=== PATIENT | female | born 1935 | race Caucasian/White ===

== ENCOUNTER 2024-04-27 18:44 | Emergency (ER) | payer MEDICARE, OTHER, SELFPAY ==
--- NOTE | ~2024-04-27 | XR_ITS ---
EXAMINATION: XR chest 1V portable DATE: 04/27/2024 20:17 INDICATION: Fall with head injury TECHNIQUE: frontal view of the chest was obtained. COMPARISON: None FINDINGS: Small lung volumes. Mild right apical pleural-parenchymal scarring. The left apex is obscured by the patient's chin. Mild streaky opacities at the bilateral lower lung zones and favor atelectasis over p neumonia. No pleural effusion or pneumothorax. The cardiomediastinal silhouette is within normal limi ts conifer AP technique. IMPRESSION: 1. Small lung zones with mild streaky bibasilar atelectasis. Reviewed, dictated and finalized at location A.
--- NOTE | ~2024-04-27 | CT_ITS ---
EXAMINATION: CT cervical spine wo con DATE: 04/27/2024 20:35 INDICATION: Fall with head injury TECHNIQUE: Computed tomography (CT) of the cervical spine was performed without intravenous contrast. Automated exposure control and iterative reconstruction technique were employed. The dose-length pro duct was 176.96 mGy-cm. COMPARISON: None FINDINGS: 1 mm anterolisthesis C4 on C5 and 2 mm anterolisthesis C7 on T1. Alignment is otherwise normal. Verte bral body heights are normal. No fracture. Moderate disc height loss at C6-C7. Mild disc height loss at C5-C6 and C7-T1. Small posterior disc ossified complexes result in mild central canal stenosis at C5-C6 and C6-C7. Severe uncovertebral osteoarthritis on the left at C5-C6 and on the right at C6-C7. Moderate uncovertebral osteoarthritis on the left at and C4-C5, right at C5-C6 and on the left at C6- C7. Mild uncovertebral osteoarthritis at the remaining cervical levels. There is multilevel severe bi lateral cervical facet osteoarthritis. There is moderate neural foraminal stenosis on the left at C5- C6 with mild neural foraminal stenosis at many of the remaining bilateral cervical neural foramina. C ervical soft tissues are unremarkable. Mild biapical pleural-parenchymal scarring. IMPRESSION: 1. Moderate cervical spondylosis. No acute osseous abnormality. Reviewed, dictated and finalized at location A.
--- NOTE | ~2024-04-27 | CT_ITS ---
EXAMINATION: CT brain wo con DATE: 04/27/2024 20:35 INDICATION: Fall with head injury TECHNIQUE: Computed tomography (CT) of the head was performed without intravenous contrast. Sagittal and coronal reconstructions were performed. The mA was adjusted according to patient size. Iterative reconstruction technique was employed. The dose-length product was 605.33 mGy-cm. COMPARISON: None FINDINGS: Large left frontal scalp hematoma and smaller left parietal scalp hematoma. No fracture. No acute int racranial hemorrhage, acute infarction or abnormal extra axial fluid collection. There is mild scatte red white matter hypoattenuation consistent with chronic small vessel ischemic disease. Symmetric pro minence of the sulci and and subarachnoid spaces overlying the convexities consistent with moderate a ge-appropriate diffuse cerebral volume loss. Ventricles are normal and symmetric. 13 x 10 x 13 mm pa rtially calcified extra-axial mass along the inferior margin the posterior medial right tentorium con sistent with a meningioma. Intracranial calcified cerebral atherosclerosis is noted. The orbits, para nasal sinuses and mastoid air cells are normal. IMPRESSION: 1. No fracture or acute intracranial process. 2. Age-related changes including moderate diffuse volume loss and mild scattered white matter hypoatt enuation consistent with chronic small vessel ischemic disease. 3. 13 mm partially calcified extra-axial mass in the posterior fossa consistent with a meningioma. Reviewed, dictated and finalized at location A. IMPRESSION: 1. No fracture or acute intracranial process. 2. Age-related changes including moderate diffuse volume loss and mild scattere d white matter hypoattenuation consistent with chronic small vessel ischemic di sease. 3. 13 mm partially calcified extra-axial mass in the posterior fossa consistent with a meningioma.
[2024-04-27 18:45] VITALS: TEMP 37
--- NOTE | 2024-04-27 19:17 | ED_ITS ---
HPI - General Adult General Chief complaint: Fall Stated complaint: FALL, HEAD INJURY Time Seen by Provider: 04/27/24 18:53 History of Present Illness HPI narrative: This is an 88-year-old female history Alzheimer's dementia presenting after a fall. Patient has been having multiple falls over the last several days. Today she fell or she has to pick something up off the ground while in wheelchair. She then to before striking her head on the ground. No loss of consciousness. No use of blood thinners. Patient has no physical complaints at this time. Patient's daughter as the bedside. Discussing goals of care the patient is DNR DNI comfort measures and the daughter be pursuing hospice care. Exam Narrative: APPEARANCE: No apparent distress. A&O x1 Head: Hematoma to the left forehead EYES: EOMI, 2 mm and reactive NOSE: Atraumatic NECK: Trachea midline RESPIRATORY: No increased rate of breathing CTAB CARDIOVASCULAR: RRR, no peripheral edema ABDOMINAL: Non-distended soft nontender MUSCULOSKELETAl: No obvious deformities NEURO: Alert. Moving for 4 extremities to command SKIN:: Warm, dry. Normal color PSYCHIATRIC: Normal affect Course Vital Signs Vital signs: Vital Signs Temperature 98.6 F 04/27/24 18:45 Oxygen Delivery Room Air 04/27/24 18:45 Temperature 98.6 F 04/27/24 18:45 Oxygen Delivery Room Air 04/27/24 18:45 Medical Decision Making MDM Narrative Medical decision making narrative: -Course: 88-year-old female with severe dementia presenting after a ground level fall. CT of her head neck and chest x-ray were unremarkable for acute traumatic injury. I did speak with the patient's daughter at length in regards to goals of care. Patient is DNR DNI and going forward they will focus on comfort measures. Patient's daughter will speak with L[facility] about hospice options. -DDX includes but is not limited to: Dementia, ICH bony injury, soft tissue injury from sepsis, UTI -Co-morbidities complicating care: Dementia -Social determinants of health: [facility] resident -Hx from independent Sources: Daughter @ bedside -Independent interpretation of studies: Imaging reviewed -Shared decision making / Disposition: discharged. Vital Signs Vital Signs: Vital Signs Temperature 98.6 F 04/27/24 18:45 Oxygen Delivery Room Air 04/27/24 18:45 Temperature 98.6 F 04/27/24 18:45 Oxygen Delivery Room Air 04/27/24 18:45 Discharge Plan Discharge Clinical Impression: Fall Patient Disposition: Home, Self-Care Condition: Stable Instructions: Antibiotic Form, Dementia (ED) Additional Instructions: Celeste Gtz was seen in the ER for another fall. We discussed goals of care for Mrs. Gtz and we have decided to focus on making her comfortable. Please speak with Lisha about hospice options. Return to the ED if you would like re-evaluation. Follow-up/Referrals: PHYSICIAN,HOUSEKEEPING AND [employer] TEAM LEADER [Primary Care Provider] -
[2024-04-27 21:34] VITALS: BP 132/63; PULSE 62; RESP 18; O2SAT 94
--- NOTE | 2024-04-27 22:08 | PC.NURSE ---
This RN called [facility] in [place] and spoke with a staff member about discharge instructions along with pt ETA at this time.
[2024-04-28 03:03] VITALS: BP 141/67; PULSE 67; RESP 18; O2SAT 93
[2024-04-28 05:18] VITALS: BP 120/72; PULSE 68; RESP 18; O2SAT 94
[2024-04-28 07:18] VITALS: BP 147/72; PULSE 80; RESP 16; O2SAT 99
== END 2024-04-28 07:20 ==
PROVIDERS: Emergency Provider Emergency Medicine
DX: G30.9 Alzheimer's disease, unspecified (principal); F02.80 Dementia in other diseases classified elsewhere, unspecified severity, without behavioral disturbance, psychotic disturbance, mood disturbance, and anxiety; Z66 Do not resuscitate; W05.0XXA Fall from non-moving wheelchair, initial encounter
CPT/HCPCS: 70450; 71045; 72125; 99284